=== PATIENT | female | born 1965 | race Caucasian/White ===

== ENCOUNTER 2018-08-29 05:15 | Day surgery (SDC) ==
[2018-08-22 15:25] LABS: HEMATOCRIT 31.1 % (37.0-47.0); HEMOGLOBIN 9.7 g/dL (12.0-16.0); MCH 25.5 PG (27-31); MCHC 31.2 g/dL (33-37); MCV 81.8 FL (81-99); MPV 10.4 FL (7.4-10.4); RBC 3.8 XMIL (4.2-5.4); WBC 8.58 X1000 (4.8-10.8)
[2018-08-22 16:00] LABS: AGAP 11; BUN 10 mg/dL (8-22); CALCIUM 9.3 mg/dL (8.8-10.2); CHLORIDE 104 mmol/L (98-107); COSMO 276; CREATININE 0.9 mg/dL (0.5-0.9); ESTIMATED GFR > 60; GLUCOSE 86 mg/dL (70-104); POTASSIUM 3.8 mmol/L (3.5-5.1); SODIUM 139 mmol/L (136-145); TCO2 24 mmol/L (25-35)
[2018-08-29] MEDS ORDERED: REGLAN ONE (06:22)
[2018-08-29] MEDS ORDERED: LR 1,000 ML ONE ×3 (06:22→11:50)
[2018-08-29] MEDS ORDERED: VALIUM ONE (06:22)
[2018-08-29] MEDS ORDERED: PEPCID ONE (06:22)
[2018-08-29] MEDS ORDERED: KEFZOL 2 GM/D5W 2 GM/50 ML IVPB ONE (06:22)
[2018-08-29] MEDS ORDERED: TRANSDERM-SCOP ONE (06:22)
[2018-08-29] MEDS ORDERED: DIPRIVAN 1% ONE ×2 (06:26→10:19)
[2018-08-29] MEDS ORDERED: QUELICIN (DOSE) ONE (06:28)
[2018-08-29] MEDS ORDERED: SENSORCAINE-MPF 0.5%/EPI 1:200,000 ONE (06:29)
[2018-08-29] MEDS ORDERED: FENTANYL ONE (06:30)
[2018-08-29] MEDS ORDERED: MANNITOL ONE (08:18)
[2018-08-29] MEDS ORDERED: ZOFRAN ONE ×2 (09:11→11:18)
[2018-08-29] MEDS ORDERED: DECADRON ONE (09:11)
[2018-08-29 09:27] LABS: URINE SOURCE CATH
[2018-08-29 09:32] LABS: BILIRUBIN URINE NEGATIVE (NEGATIVE); BLOOD URINE TRACE (NEGATIVE); COLOR STRAW; GLUCOSE URINE NEGATIVE (NEGATIVE); KETONE URINE TRACE mg/dL (NEGATIVE); LEUKOCYTES URINE NEGATIVE (NEGATIVE); NITRITE URINE NEGATIVE (NEGATIVE); PH URINE 7.5; PROTEIN URINE NEGATIVE (NEGATIVE); TURBIDITY URINE CLEAR (CLEAR); UROBILINOGEN URINE NORMAL (NORMAL)
[2018-08-29 09:33] LABS: UR EPITHELIAL CELLS <10 /HPF (<10); URINE BACTERIA NEGATIVE /HPF; URINE RBC <10 /HPF (<10); URINE WBC <10 /HPF (<10)
[2018-08-29] MEDS ORDERED: OFIRMEV 1000 MG/ISOTONIC SOLN 1,000 MG/100 ML BOTTLE ONE (10:26)
[2018-08-29] MEDS ORDERED: NEOSTIGMINE ONE ×2 (10:29→10:30)
[2018-08-29] MEDS ORDERED: BRIDION ONE ×2 (10:58→10:59)
[2018-08-29] MEDS ORDERED: DILAUDID ONE (11:21)
--- NOTE | 2018-08-29 11:54 | OPERATIVE NOTE ---
PROCEDURE DATE: 08/29/2018 SURGEON: Ponce Mckeon MD. GLASS UNLOADING EQUIPMENT TENDER SURGEON: Vishal Gray MD. PREOPERATIVE DIAGNOSIS: Left upper pole renal mass. POSTOPERATIVE DIAGNOSIS: Left upper pole renal mass. PROCEDURE PERFORMED: Laparoscopic robot-assisted left partial nephrectomy. ANESTHESIA: General endotracheal. FINDINGS: An approximate 3 cm fatty-appearing tumor in the anterior upper pole kidney. INDICATION FOR PROCEDURE: This 52-year-old female was noted to have a left upper pole renal mass on CT scan of the abdomen. DESCRIPTION OF PROCEDURE: After informed consent was obtained from the patient and her receiving IV antibiotics, she was taken the main OR, placed in the supine position. General endotracheal anesthesia was achieved. A 16-B[place] Weiss catheter was passed through the patient's urethra and into the bladder to gravity drain. The patient was then fixed to the table with her left side up to about 45 degrees. She was placed over the break in the table which was flexed to less than 30 degrees. She was then placed in slight Trendelenburg. She was securely fixed to the table with safety straps and tape. The patient was then rotated all the way to the left such that she was almost horizontal and then all the way to the right such that she was in flank position, and rolled back to the supine position. She was securely fixed to the table. The patient was then prepped and draped in the usual sterile fashion of the abdomen and left flank. Pneumoperitoneum was achieved by placing a Veress needle through the umbilicus. A 15 cm of water pressure was achieved. The camera port incision was made 1 handbreadth above the umbilicus in the midline. The Visiport was used to place the 12 mm trocar that will be used for the camera port. The camera was placed and the robot trocars were placed with the #2 port placed just below the ribcage at the midclavicular line. The #1 was placed in the midclavicular line below the umbilicus and the 3rd port was placed just below the left anterosuperior iliac spine. The litigation legal assistant port was placed in the midline just below the umbilicus. It was a 12 mm port. The patient was then rotated such that she was in flank position. The robot was docked. The procedure was started by taking down the descending colon along the white line of Toldt. It was reflected medially off of the kidney. The gonadal vein was found just at the lower pole of the kidney and dissected superiorly to where it entered the renal vein. The renal artery was seen pulsating just above the renal vein. The renal vein was bluntly and sharply dissected free, encircled with a vessel loop. The renal artery was likewise dissected free and encircled with a vessel loop. The perirenal fat was removed from the anterior surface of the kidney and the upper pole. As noted on the CT scan, there was an artery going directly into the mass and this was taken down with clips and the PK. After the artery and it's associated vein were taken down, the upper pole was completely freed. The [employer] Direct Alpha 10 ProSound ultrasound machine with the drop-in probe was used to image the mass, which confirmed its presence as noted on the CT scan. The proposed incision line was marked out on the renal capsule with the electrocautery. A bulldog clamp was placed on the artery and a bulldog clamp was placed on the vein. The mass was cut out and it appeared the deep margin was slightly compromised but the very lower part of the incision was redone and it appears the entire tumor was removed. The tumor appeared very fatty. The tumor was placed in the left pericolic gutter. A 3-0 V-Loc suture was passed through the capsule and then was used oversew the base of the tumor, 2 layers were placed. At the distal end of the suture, it was brought out back through the capsule and another Hem-o-Callum clip was placed on each suture to secure the base of the tumor, any collecting system incision and vessels were oversewn. The capsule was reapproximated with a running suture of 0 V-Loc suture. A suture was passed through the capsule on the inferior side of the kidney and out at the corticomedullary junction, on the inside of the kidney and the suture was pulled tight to bring the clip and up against the capsular sidewall. The suture was then passed through the corticomedullary junction on the opposite side and out of the capsule and a clip was placed and this brought the defect in the kidney together. The suture was then passed back through the capsule of the kidney and out the opposite side, another clip was placed. This was done a total of 4 times to bring the capsule completely together. The vein bulldog clamp was removed and then the artery bulldog clamp was removed. No bleeding areas were seen. The kidney pinked right up. Total ischemic time was 33 minutes. The vessel loops were removed from the renal vessels and removed from the body. Evicel was placed along the defect in the capsule. The perirenal fat was placed over this. Gerota's fascia was reapproximated over this area and held in place with clips. The tumor was placed in an EndoCatch retrieval bag as well as a small part of the base that was removed separately. A Isaías drain was placed through #4 arm port in the left lower quadrant. It was sutured to the skin with 0 nylon. The robot trocars were removed under direct vision. No bleeding areas were seen. The robot was moved away from the table and the patient turned back to the supine position. The specimen easily was removed through the litigation legal assistant port after the port itself was removed. The 12 mm port site rectus fascia was reapproximated with a 2-0 Vicryl suture on a UR6 needle. A simple suture was placed that close the fascia very well. The wounds were reapproximated with skin clips. Island dressings were placed. She tolerated the procedure well. ESTIMATED BLOOD LOSS: 50 mL. DISPOSITION: The Weiss catheter was removed and she was taken to the recovery room in good condition. cc: Ponce Mckeon MD MTDD
[2018-08-29] MEDS ORDERED: OXY IR PO PRN (12:15)
[2018-08-29] MEDS ORDERED: BENADRYL LIQUID PO PRN (12:15)
[2018-08-29] MEDS ORDERED: SODIUM CHLORIDE 0.9% INJ PRN (12:15)
[2018-08-29] MEDS ORDERED: LABETALOL IV PRN (12:15)
[2018-08-29] MEDS ORDERED: PHENERGAN IV PRN (12:15)
[2018-08-29 12:48] LABS: HEMATOCRIT 31.5 % (37.0-47.0); HEMOGLOBIN 9.5 g/dL (12.0-16.0); MCH 24.7 PG (27-31); MCHC 30.2 g/dL (33-37); MCV 81.8 FL (81-99); MPV 10.6 FL (7.4-10.4); RBC 3.85 XMIL (4.2-5.4); WBC 17.88 X1000 (4.8-10.8)
[2018-08-29] MEDS ORDERED: ULTRAM PO PRN (13:00)
[2018-08-29] MEDS: OXY IR PO PRN ×2 (16:52→21:20)
[2018-08-29] MEDS: LR 1,000 ML IV SCH ×2 (16:53→22:14)
[2018-08-29] MEDS: KEFZOL 1 GM/D5W 1 GM/50 ML IVPB IV SCH ×2 (16:54→21:21)
[2018-08-29] MEDS ORDERED: OFIRMEV 1000 MG/ISOTONIC SOLN 1,000 MG/100 ML BOTTLE IV PRN (17:00)
[2018-08-29] MEDS: PEPCID PO SCH (21:21)
[2018-08-30] MEDS: COLACE PO SCH ×2 (02:59→09:37)
[2018-08-30] MEDS: PERIDEX MT SCH ×2 (03:00→09:37)
[2018-08-30] MEDS: KEFZOL 1 GM/D5W 1 GM/50 ML IVPB IV SCH ×3 (03:01→07:42)
[2018-08-30 07:16] VITALS: BP 112/44
[2018-08-30 07:17] LABS: BASO# 0.03 X1000 (0.0-0.2); BASO% 0.2 % (0.0-0.8); HEMATOCRIT 30.8 % (37.0-47.0); HEMOGLOBIN 9.4 g/dL (12.0-16.0); IMM GRAN# 0.04 X1000 (0.0-0.04); IMM GRAN% 0.3 % (0.0-0.5); LYMPH# 1.33 X1000 (1.2-3.4); LYMPH% 8.5 % (20.5-51.1); MCH 24.9 PG (27-31); MCHC 30.5 g/dL (33-37); MCV 81.5 FL (81-99); MONO# 0.98 X1000 (0.11-0.59); MONO% 6.3 % (1.7-9.3); NEUT% 84.7 % (42.2-75.2); PLT 318 X1000 (130-400); RBC 3.78 XMIL (4.2-5.4); RDW 16.2 % (11.5-14.5); WBC 15.58 X1000 (4.8-10.8)
[2018-08-30 07:39] LABS: AGAP 10; BUN 6 mg/dL (8-22); CALCIUM 8.7 mg/dL (8.8-10.2); CHLORIDE 109 mmol/L (98-107); COSMO 279; CREATININE 0.9 mg/dL (0.5-0.9); ESTIMATED GFR > 60; GLUCOSE 98 mg/dL (70-104); POTASSIUM 3.7 mmol/L (3.5-5.1); SODIUM 141 mmol/L (136-145); TCO2 22 mmol/L (25-35)
[2018-08-30] MEDS: PEPCID PO SCH (09:37)
[2018-08-30 10:36] LABS: CREATININE BODY FLUID 0.7 mg/dL
== END 2018-08-30 15:57 | disposition home or self-care (01) ==
LOC: 4N 05:15 → OR 05:15
PROVIDERS: ATTEND Urology
CPT/HCPCS: 76942; 80048; 81001; 81025; 82570; 85025; 85027; 88307; 88313; 94761; 94799; A9270; J0131; J0330; J0690; J1100; J1170; J2150; J2405; J2550; J3010; J7120; S2900